=== PATIENT | female | born 1945 | race Caucasian/White ===

== ENCOUNTER → 2024-05-23 12:23 | Outpatient (BNVA) | payer MEDICARE, SELFPAY | PROVIDERS: PCP Family Medicine; Visit Provider Nurse Practitioner Family | DX: L82.1 Other seborrheic keratosis (principal); L57.8 Other skin changes due to chronic exposure to nonionizing radiation; Z08 Encounter for follow-up examination after completed treatment for malignant neoplasm; Z85.828 Personal history of other malignant neoplasm of skin; L82.0 Inflamed seborrheic keratosis; Z78.9 Other specified health status; D48.5 Neoplasm of uncertain behavior of skin; L57.0 Actinic keratosis | CPT/HCPCS: 11102; 17000; 17110; 99203 ==

== ENCOUNTER → 2024-07-03 08:29 | Outpatient (BNVA) | payer MEDICARE, SELFPAY | PROVIDERS: PCP Family Medicine; Visit Provider Dermatology | DX: D04.39 Carcinoma in situ of skin of other parts of face (principal); L82.1 Other seborrheic keratosis; L81.4 Other melanin hyperpigmentation; Z08 Encounter for follow-up examination after completed treatment for malignant neoplasm; Z85.820 Personal history of malignant melanoma of skin | CPT/HCPCS: 99213 ==

== ENCOUNTER → 2024-10-03 13:18 | Outpatient (BNVA) | payer MEDICARE, SELFPAY | PROVIDERS: PCP Family Medicine; Visit Provider Dermatology | DX: L82.1 Other seborrheic keratosis (principal); Z08 Encounter for follow-up examination after completed treatment for malignant neoplasm; Z85.820 Personal history of malignant melanoma of skin; Z86.007 Personal history of in-situ neoplasm of skin; L57.0 Actinic keratosis | CPT/HCPCS: 17000; 99213 ==

== ENCOUNTER → 2025-05-27 13:17 | Outpatient (BNVA) | payer MEDICARE, SELFPAY | PROVIDERS: PCP Family Medicine; Visit Provider Nurse Practitioner Family | DX: L82.1 Other seborrheic keratosis (principal); Z08 Encounter for follow-up examination after completed treatment for malignant neoplasm; Z85.820 Personal history of malignant melanoma of skin; Z86.007 Personal history of in-situ neoplasm of skin; L57.0 Actinic keratosis | CPT/HCPCS: 17000; 99213 ==